=== PATIENT | male | born 1995 | race African-American/Black ===

== ENCOUNTER 2023-05-13 03:15 | Emergency (ER) | payer SELFPAY ==
[~2023-05-13] VITALS: Ht 175.3 cm; Wt 75.0 kg
[2023-05-13 03:26] VITALS: BP 130/79; PULSE 95; RESP 15; TEMP 98; O2SAT 99
[2023-05-13] MEDS: ONDANSETRON HCL 4MG/2ML INJ IV STA (03:37)
[2023-05-13] MEDS: SODIUM CHLORIDE 0.9% 1,000 ML IV ONE (03:45)
[2023-05-13 04:54] LABS: BASOPHILS % 0.4 % (0.0-2.0); EOSINOPHILS % 0.3 % (0.0-5.0); HEMATOCRIT. 43.9 % (42.0-52.0); HEMOGLOBIN. 14.9 g/dL (14.0-18.0); LYMPHOCYTES % 19.1 % (20.0-50.0); MEAN CORPUSCULAR HEMOGLOBIN 30.1 pg (28.0-32.0); MEAN CORPUSCULAR HGB CONC 33.9 g/dL (31.0-37.0); MEAN CORPUSCULAR VOLUME 88.8 fL (80.0-94.0); MEAN PLATELET VOLUME 9.1 fl (7.4-10.4); MONOCYTES % 5.5 % (2.0-8.0); NEUTROPHILS % 74.7 % (40.0-76.0); PLATELET 197 x1000/uL (130-400); RED BLOOD CELL COUNT 4.94 mill/uL (4.7-6.1); RED CELL DISTRIBUTION WIDTH 12.8 % (11.6-14.6); WHITE BLOOD COUNT 8.3 x1000/uL (4.5-11.0)
[2023-05-13 05:08] LABS: ACETAMINOPHEN < 2 ug/mL (10-30); ALANINE AMINOTRANSFERASE 126 IU/L (10-49); ALBUMIN 4.8 g/dL (3.2-4.8); ASPARTATE AMINOTRANSFERASE 50 IU/L (<34); BILIRUBIN TOTAL 0.7 mg/dL (0.1-1.0); CALCIUM 9.3 mg/dL (8.7-10.4); CARBON DIOXIDE 24 mEq/L (21-32); CHLORIDE 105 mEq/L (98-107); CREATININE 1.1 mg/dL (0.6-1.3); ETHANOL BLOOD 174 mg/dL (<10); GLUCOSE 100 mg/dL (70-105); PROTEIN TOTAL 7.9 g/dL (6.0-8.3); SODIUM 140 mEq/L (136-145); UREA NITROGEN BLOOD 12 mg/dL (9-23)
[2023-05-13 06:11] LABS: POTASSIUM 2.8 mEq/L (3.5-5.1)
[2023-05-13] MEDS ORDERED: POTA-204 MT (06:16)
[2023-05-13] MEDS: POTASSIUM CHLORIDE 20MEQ/PACKET PO ONE (06:49)
== END 2023-05-13 07:11 | disposition home or self-care (01) ==
LOC: ER 03:39
DX: F10.129 Alcohol abuse with intoxication, unspecified (principal); E87.6 Hypokalemia; Y90.6 Blood alcohol level of 120-199 mg/100 ml
CPT/HCPCS: 80053; 80307; 80329; 80320; 85025; 36415; 96374; 99283; J7030; G0480